=== PATIENT | female | born 1995 | race Asian ===

== ENCOUNTER 2022-03-15 20:09 | Emergency (ER) | payer OTHER ==
[~2022-03-15] VITALS: Ht 144.8 cm; Wt 48.9 kg
[2022-03-15] MEDS ORDERED: KETOROLAC 60MG/2ML VIAL IM STA (21:55)
[2022-03-15] MEDS ORDERED: DICYCLOMINE 10 MG/5 ML ORAL SYR PO STA (21:55)
[2022-03-15] MEDS ORDERED: ONDANSETRON 4MG ODT PO STA (21:55)
[2022-03-15 22:59] LABS: BASOPHILS % 0.6 % (0.0-2.0); EOSINOPHILS % 0.1 % (0.0-5.0); HEMATOCRIT. 40.6 % (36.0-48.0); HEMOGLOBIN. 13.8 g/dL (12.0-16.0); LYMPHOCYTES % 16.7 % (20.0-50.0); MEAN CORPUSCULAR VOLUME 91.1 fL (81.0-99.0); MEAN PLATELET VOLUME 8.5 fl (7.4-10.4); MONOCYTES % 5.8 % (2.0-8.0); NEUTROPHILS % 76.8 % (40.0-76.0); PLATELET 272 x1000/uL (130-400); RED BLOOD CELL COUNT 4.46 mill/uL (4.2-5.4); RED CELL DISTRIBUTION WIDTH 12.5 % (11.6-14.6)
[2022-03-15 23:04] LABS: CLARITY URINE CLEAR (CLEAR); COLOR URINE YELLOW (YELLOW); KETONES URINE TRACE (NEGATIVE); LEUKOCYTE ESTERASE URINE NEGATIVE (NEGATIVE); NITRITE URINE NEGATIVE (NEGATIVE); OCCULT BLOOD URINE NEGATIVE (NEGATIVE); PH URINE 7.5 (4.5-8.0); PROTEIN URINE TRACE (NEGATIVE); SPECIFIC GRAVITY URINE 1.025 (1.005-1.030); UROBILINOGEN URINE 0.2 E.U./dL (0.2-1.0)
[2022-03-15 23:21] LABS: CHLORIDE 106 mEq/L (98-107)
[2022-03-16] MEDS ORDERED: LOPE2CAP MT (00:20)
[2022-03-16 00:49] VITALS: BP 130/52
== END 2022-03-16 00:50 | disposition home or self-care (01) ==
LOC: ER 20:09
DX: R10.9 Unspecified abdominal pain (principal)
CPT/HCPCS: 36415; 80053; 81003; 83690; 85025; 96372; 99283; J1885; Q0162